=== PATIENT | female | born 1995 | race Caucasian/White ===

== ENCOUNTER 2022-02-09 09:46 | Inpatient (IN) | payer BC ==
[2022-02-08 10:58] LABS: Hemoglobin 12.8 g/dL (12.0-15.5); Mean Corpuscular HGB CONC 34.1 g/dL (32.0-36.0); Mean Corpuscular Hemoglobin 30.3 pg (27.0-33.0); Mean Corpuscular Volume 88.7 fl (81.6-98.3); Mean Platelet Volume 10.7 fl (7.4-10.4); Platelet Count 249 10x3/uL (150-450); RBC Distribution Width 13.3 % (11.5-14.5); Red Blood Cell (RBC) Count 4.23 10x6/uL (3.90-5.03); White Blood Cell (WBC) Count 12.6 10x3/uL (3.5-10.5)
[2022-02-08 11:27] LABS: SARS-CoV-2 NAA Rapid Test Not Detected (NotDetected)
[2022-02-08 11:31] LABS: Syphilis Antibody Nonreactive (Nonreactive); Syphilis Antibody Index 0.05 S/CO (<1.00 Non-Reactive)
[2022-02-08 11:32] LABS: Hep B Surf Ag Non-Reactive S/CO (NonReactive)
[2022-02-09] MEDS ORDERED: hydrALAZINE 20 MG/ML VIAL SLOW IVP PRN ×2 (10:04→16:20)
[2022-02-09] MEDS ORDERED: Bicitra 30 ML UDCUP PO PRN (10:04)
[2022-02-09] MEDS ORDERED: Promethazine HCl 25 MG/ML VIAL IM PRN ×3 (10:04→16:20)
[2022-02-09] MEDS ORDERED: Ondansetron PF 4 MG/2 ML Vial IVP PRN ×3 (10:04→16:20)
[2022-02-09] MEDS ORDERED: Famotidine/PF 20 mg/2ml Vial SLOW IVP PRN (10:04)
[2022-02-09] MEDS ORDERED: Lactated Ringer's 1,000 ML IV SCH (10:15)
[2022-02-09] MEDS ORDERED: CEFAZOLIN 2 GM in Sodium Chloride 0.9% 100 ML IVPB SCH (10:15)
[2022-02-09 10:58] VITALS: BMI 31.1
[2022-02-09] MEDS ORDERED: Moisturizing Cream (Eucerin) 113 GM JAR TOP PRN (11:11)
[2022-02-09] MEDS ORDERED: Promethazine HCl 25 MG SUPP PR PRN (11:11)
[2022-02-09] MEDS ORDERED: Naloxone HCl 0.4 mg/ml Vial IVP PRN ×2 (11:11)
[2022-02-09] MEDS ORDERED: Ondansetron HCl/PF 4 MG/2 ML Vial IVP PRN (11:11)
[2022-02-09] MEDS ORDERED: Fentanyl 100 MCG/2 ML VIAL SLOW IVP PRN (11:11)
[2022-02-09] MEDS ORDERED: Naloxone HCl 0.4 mg/ml Vial IV PRN (11:11)
[2022-02-09] MEDS ORDERED: Meperidine HCl/PF 25 MG/ML VIAL SLOW IVP PRN (11:11)
[2022-02-09] MEDS ORDERED: diphenhydrAMINE 50 MG/ML VIAL IVP PRN (11:11)
[2022-02-09] MEDS ORDERED: Ketorolac Tromethamine 30 MG/ML VIAL IVP SCH (11:15)
[2022-02-09] MEDS ORDERED: Communication Order-Pharmacy FS SCH (11:15)
[2022-02-09] MEDS ORDERED: Oxytocin 10 UNITS/ML VIAL ONE (11:25)
[2022-02-09] MEDS ORDERED: Dexamethasone 4 mg/ml Vial ONE (11:25)
[2022-02-09] MEDS ORDERED: Ondansetron PF 4 MG/2 ML Vial ONE (11:25)
[2022-02-09] MEDS ORDERED: Ketorolac Tromethamine 30 MG/ML VIAL ONE (11:25)
[2022-02-09] MEDS ORDERED: Morphine PF 10 MG/10 ML VIAL ONE (11:25)
[2022-02-09] MEDS ORDERED: Meperidine HCl/PF 25 MG/ML VIAL ONE (16:10)
[2022-02-09] MEDS ORDERED: Bisacodyl 10 MG SUPP PR PRN (16:20)
[2022-02-09] MEDS ORDERED: Boostrix 0.5 ML (Tdap) VIAL (>/=7 yrs of age) IM ONE (16:20)
[2022-02-09] MEDS ORDERED: Misoprostol 200 MCG TAB PR PRN (16:20)
[2022-02-09] MEDS ORDERED: Measles/Mumps/Rubella 10 MCG/0.5 ML VIAL SC ONE (16:20)
[2022-02-09] MEDS ORDERED: Varicella virus, LIVE 0.5 ML VIAL SC ONE (16:20)
[2022-02-09] MEDS ORDERED: Methylergonovine 0.2 MG/ML VIAL IM PRN (16:20)
[2022-02-09] MEDS ORDERED: NS w/ Oxytocin 30 units 500 ML IV SCH (16:20)
[2022-02-09] MEDS ORDERED: Lanolin Ointment 7 GM TUBE TOP PRN (16:20)
[2022-02-09] MEDS: Docusate 100 MG CAP PO SCH (21:05)
[2022-02-09] MEDS: Ferrous Sulfate 325 MG TAB PO SCH (22:04)
[2022-02-09] MEDS: diphenhydrAMINE 25 MG CAP PO PRN (23:07)
[2022-02-09] MEDS: Ketorolac Tromethamine 30 MG/ML VIAL IVP PRN (23:07)
[2022-02-09] MEDS ORDERED: Zolpidem Tartrate 5 MG TAB PO PRN (23:15)
[2022-02-10 03:30] LABS: Hemoglobin 12.1 g/dL (12.0-15.5); Mean Corpuscular HGB CONC 33.3 g/dL (32.0-36.0); Mean Corpuscular Hemoglobin 29.8 pg (27.0-33.0); Mean Corpuscular Volume 89.4 fl (81.6-98.3); Mean Platelet Volume 10.8 fl (7.4-10.4); Platelet Count 230 10x3/uL (150-450); RBC Distribution Width 13.3 % (11.5-14.5); Red Blood Cell (RBC) Count 4.06 10x6/uL (3.90-5.03); White Blood Cell (WBC) Count 17.8 10x3/uL (3.5-10.5)
[2022-02-10] MEDS: Ketorolac Tromethamine 30 MG/ML VIAL IVP PRN (04:10)
[2022-02-10] MEDS: Simethicone Chewable 80 MG TAB PO PRN ×2 (04:10→21:25)
[2022-02-10] MEDS: HYDROcodone/Acetaminophen 5/325 mg Tablet PO PRN ×4 (04:10→22:40)
[2022-02-10] MEDS: diphenhydrAMINE 25 MG CAP PO PRN ×2 (04:30→12:33)
[2022-02-10] MEDS: Ferrous Sulfate 325 MG TAB PO SCH ×2 (08:23→21:25)
[2022-02-10] MEDS: Docusate 100 MG CAP PO SCH ×2 (08:33→21:24)
[2022-02-10] MEDS: Prenatal Vitamin 1 TAB PO SCH (08:33)
[2022-02-10] MEDS: Ibuprofen 800 MG TAB PO SCH ×2 (13:54→21:25)
[2022-02-11] MEDS: Ibuprofen 800 MG TAB PO SCH (05:12)
[2022-02-11] MEDS: Simethicone Chewable 80 MG TAB PO PRN (05:13)
[2022-02-11] MEDS: HYDROcodone/Acetaminophen 5/325 mg Tablet PO PRN ×2 (05:22→09:46)
[2022-02-11 07:48] VITALS: BP 123/81; TEMP 98.4
[2022-02-11] MEDS: Prenatal Vitamin 1 TAB PO SCH (08:25)
[2022-02-11] MEDS: Docusate 100 MG CAP PO SCH (08:25)
[2022-02-11] MEDS: Ferrous Sulfate 325 MG TAB PO SCH (08:26)
== END 2022-02-11 12:55 | disposition home or self-care (01) | DRG 788 ==
LOC: CSHLD 09:46 → CSHPP 16:45
PROVIDERS: ADMIT Obstetrics & Gynecology; ATTEND Obstetrics & Gynecology
PROC: 10D00Z1 Extraction of Products of Conception, Low, Open Approach (ICD-10-PCS; principal; 2022-02-09)
DX: O34.211 Maternal care for low transverse scar from previous cesarean delivery (principal); Z20.822 Contact with and (suspected) exposure to COVID-19; Z3A.39 39 weeks gestation of pregnancy; Z37.0 Single live birth; F17.210 Nicotine dependence, cigarettes, uncomplicated; O99.334 Smoking (tobacco) complicating childbirth
CPT/HCPCS: 36415; 51702; 85027; 86780; 86850; 86900; 86901; 87340; J1100; J1200; J1885; J2175; J2274; J2405; J2590; J3490; S0028; U0002